=== PATIENT | female | born 1970 | race Caucasian/White ===

== ENCOUNTER 2022-04-30 16:16 | Emergency (ER) | payer OTHER, SELFPAY ==
--- NOTE | ~2022-04-30 | XR_ITS ---
EXAM: XR knee LT min 4V DATE: 04/30/2022 16:52 HISTORY: TRIPPED OVER HAY BAIL 04/29/22. MEDIAL PAIN. . COMPARISON: None available. FINDINGS: Normal mineralization. No fracture or dislocation. No lytic or blastic lesion. Moderate tr icompartmental osteoarthritis. No erosion or periosteal change. Soft tissues within normal limits. Mo derate volume knee joint effusion. IMPRESSION: No acute osseous finding in the left knee. Reviewed, dictated and finalized at location [facility].
[2022-04-30 16:24] VITALS: BP 151/87; PULSE 83; RESP 14; TEMP 36.5; O2SAT 100
--- NOTE | 2022-04-30 17:11 | ED.LOWEXIN ---
HPI - Extremity Injury (Lower) General Chief Complaint: Extremity Injury, Lower Stated Complaint: Left knee injury Time Seen by Provider: 04/30/22 17:05 Source: patient, family, RN notes reviewed and old records reviewed Mode of arrival: ambulatory Limitations: no limitations History of Present Illness HPI Narrative: 51-year-old female who [facility] with complaints of falling over Hay bale last night when she got her foot entangled with soft cooler she didn't see when she stepped over bale of hay. Patient states she rolled her foot and fell onto her left knee. She states that she has pain to the medial aspect of her knee and behind her knee rates her pain as 6/10. Patient is ambulating with limping gait, mild swelling noted to anterior left knee medial aspect.Patient has applied ice, elevated knee and taken Ibuprofen for her discomfort. MD complaint: knee injury Onset (ago): day(s) (1) Severity scale (1-10): 6 Treatments prior to arrival: cold therapy, NSAIDS and other (elevated knee) Related Data Home Medications Medication Instructions Recorded Confirmed hydrochlorothiazide 12.5 mg tablet 12.5 mg PO DAILY 04/30/22 04/30/22 norethindrone 1.5 mg-ethinyl 1 tablet PO DAILY 04/30/22 04/30/22 estradiol 30 mcg(21)/iron 75 mg(7) tablet (Celine Fe 1.5/30 (28)) omeprazole 20 mg tablet,delayed 20 mg PO DAILY 04/30/22 04/30/22 release Allergies Allergy/AdvReac Type Severity Reaction Status Date / Time Penicillins Allergy Hives Verified 04/30/22 16:32 Review of Systems Review of Systems: CONSTITUTIONAL: Denies fever, chills, or sweats. CARDIOVASCULAR: Denies chest pain, palpitations, or edema. RESPIRATORY: Denies cough or dyspnea. SKIN: Denies rash or itching. Denies laceration or abrasions MUSCULOSKELETAL: Reports pain and swelling to left knee NEUROLOGIC: Denies numbness, or weakness. All systems reviewed & are unremarkable except as noted in HPI and below PMFSH Past Medical History Medical History (Updated 05/04/22 @ 08:29 by Tabatha Rodriguez NP) Arthritis Celiac disease GERD (gastroesophageal reflux disease) Hypertension Leaky heart valve mitral Surgical History Surgical History (Updated 05/04/22 @ 08:24 by Tabatha Rodriguez NP) S/P laparoscopic surgery ovarian cyst Social History Social History (Updated 05/04/22 @ 08:21 by Tabatha Rodriguez NP) Smoking status: Current some day smoker Tobacco type: cigarettes Alcohol intake: current Alcohol use details: social Substance use: never Substance use type: does not use Living arrangements: with family Gender identity (if verbalized by the patient): Female Comments At time of signature, agree with nursing past medical, surgical, social and family history. There is no relevant family history pertinent to the presenting complaint Exam Narrative: GENERAL: Well-appearing, well-nourished, and in no acute distress. HEAD: Normocephalic, atraumatic. EYES: PERRLA, conjunctivae clear NECK: Supple. CHEST: Speaks in full sentences. No respiratory distress. HEART: Regular rate and rhythm. Normal and equal peripheral pulses. EXTREMITIES: Left knee has normal strength and sensation, normal range of motion.minimal edema or ecchymosis. 5/5 strength with normal flexion and extension. Normal sensation with sensitivity to light touch and pain. No point tenderness.? ?No open wounds, no skin tenting, no devitalized tissue or atrophy, no trophic changes, no obvious deformity, alignment normal, nearby joints and structures intact. Distal pulses palpable and equal bilaterally, skin warm, dry, pink. Capillary refill less than 3 seconds. Course Course Emergency Course: Patient is aware of diagnosis, understands and agrees to treatment plan. Anticipatory guidance given. Patient agrees to follow-up as directed and is aware of reasons to seek care at the emergency department. Portions of this record may have been created with v
--- NOTE | 2022-04-30 17:28 | ED.LOWEXIN ---
HPI - Extremity Injury (Lower) General Chief Complaint: Extremity Injury, Lower Stated Complaint: Left knee injury Time Seen by Provider: 04/30/22 17:05 Source: patient, family, RN notes reviewed and old records reviewed Mode of arrival: ambulatory Limitations: no limitations Related Data Home Medications Medication Instructions Recorded Confirmed hydrochlorothiazide 12.5 mg tablet 12.5 mg PO DAILY 04/30/22 04/30/22 norethindrone 1.5 mg-ethinyl 1 tablet PO DAILY 04/30/22 04/30/22 estradiol 30 mcg(21)/iron 75 mg(7) tablet (Celine Fe 1.5/30 (28)) omeprazole 20 mg tablet,delayed 20 mg PO DAILY 04/30/22 04/30/22 release Allergies Allergy/AdvReac Type Severity Reaction Status Date / Time Penicillins Allergy Hives Verified 04/30/22 16:32 Review of Systems Review of Systems: CONSTITUTIONAL: Denies fever, chills, or sweats. CARDIOVASCULAR: Denies chest pain, palpitations, or edema. RESPIRATORY: Denies cough or dyspnea. SKIN: Denies rash or itching. Denies laceration or abrasions MUSCULOSKELETAL: Reports NEUROLOGIC: Denies numbness, or weakness. All systems reviewed & are unremarkable except as noted in HPI and below PMFSH Social History Social History (Updated 04/30/22 @ 17:30 by Tabatha Rodriguez NP) Living arrangements: with family Gender identity (if verbalized by the patient): Female Comments At time of signature, agree with nursing past medical, surgical, social and family history. There is no relevant family history pertinent to the presenting complaint Exam Narrative: GENERAL: Well-appearing, well-nourished, and in no acute distress. HEAD: Normocephalic, atraumatic. EYES: PERRLA, conjunctivae clear NECK: Supple. CHEST: Speaks in full sentences. No respiratory distress. HEART: Regular rate and rhythm. Normal and equal peripheral pulses. EXTREMITIES: [Xxx] has normal strength and sensation, normal range of motion. No edema or ecchymosis. 5/5 strength with [xxx] flexion and extension. Normal sensation with sensitivity to light touch and pain. No point tenderness.? ?No open wounds, no skin tenting, no devitalized tissue or atrophy, no trophic changes, no obvious deformity, alignment normal, nearby joints and structures intact. Distal pulses palpable and equal bilaterally, skin warm, dry, pink. Capillary refill less than 3 seconds. Course Course Emergency Course: Patient is aware of diagnosis, understands and agrees to treatment plan. Anticipatory guidance given. Patient agrees to follow-up as directed and is aware of reasons to seek care at the emergency department. Portions of this record may have been created with voice recognition software Level of Care: Express Care Visit Vital Signs Vital signs: Vital Signs Temperature 36.5 C 04/30/22 16:24 Pulse Rate 83 04/30/22 16:24 Respiratory Rate 14 04/30/22 16:24 Blood Pressure 151/87 H 04/30/22 16:24 Pulse Oximetry 100 04/30/22 16:24 Oxygen Delivery Room Air 04/30/22 16:24 Temperature 36.5 C 04/30/22 16:24 Pulse Rate 83 04/30/22 16:24 Respiratory Rate 14 04/30/22 16:24 Blood Pressure 151/87 H 04/30/22 16:24 Pulse Oximetry 100 04/30/22 16:24 Oxygen Delivery Room Air 04/30/22 16:24 MDM - Extremity Injury (Lower) MDM Narrative Medical decision making narrative: Patient's injury and/or pain is consistent with musculoskeletal etiology. No signs of neurological or vascular compromise on exam compartments and tissues are soft without signs of compartment syndrome. Patient is felt appropriate for further evaluation on outpatient basis Discharge Plan Discharge Clinical Impression: Muscle strain of left knee Patient Disposition: Home, Self-Care Condition: Stable Instructions: Antibiotic Form, Knee Pain (ED) Additional Instructions: Elastic wrap or orthopedic splint as directed for comfort for the next 5-7 days Tylenol for lesser pain Ibuprofen regularly for the next 2-3 days
== END 2022-04-30 17:28 | disposition home or self-care (01) ==
PROVIDERS: Emergency Provider Registered Nurse
DX: S86.912A Strain of unspecified muscle(s) and tendon(s) at lower leg level, left leg, initial encounter (principal); W01.0XXA Fall on same level from slipping, tripping and stumbling without subsequent striking against object, initial encounter; I10 Essential (primary) hypertension; K21.9 Gastro-esophageal reflux disease without esophagitis; K90.0 Celiac disease; M19.90 Unspecified osteoarthritis, unspecified site; I05.9 Rheumatic mitral valve disease, unspecified
CPT/HCPCS: 73564; 99213; G0463

== ENCOUNTER 2024-01-17 17:08 | Emergency (ER) | payer OTHER, SELFPAY ==
[2024-01-17 17:19] VITALS: BP 144/89; PULSE 97; RESP 18; TEMP 36.7; O2SAT 100
--- NOTE | 2024-01-17 18:02 | ED.ANIMALBIT ---
HPI - Animal Bite General Chief Complaint: Wound/Laceration Stated Complaint: Dog Bite/Finger Time Seen by Provider: 01/17/24 17:47 Source: patient and RN notes reviewed Mode of arrival: ambulatory Limitations: no limitations History of Present Illness HPI narrative: Patient presents today complaining of a dog bite to her right 2nd finger. She was bit in the PIP yesterday by a dog visiting her home. She is unsure of the dog's vaccine status, but knows it is an inside dog. She is not up-to-date on her tetanus vaccine. She has been applying ice and elevating the finger prior to arrival. States it has become more painful, red, and swollen since yesterday. Related Data Home Medications Medication Instructions Recorded Confirmed hydrochlorothiazide 12.5 mg tablet 12.5 mg PO DAILY 04/30/22 04/30/22 omeprazole 20 mg tablet,delayed 20 mg PO DAILY 04/30/22 04/30/22 release aspirin 81 mg capsule mg 01/17/24 black cohosh 01/17/24 01/17/24 diclofenac sodium 75 mg mg PO 01/17/24 tablet,delayed release lisinopril 5 mg tablet mg 01/17/24 zolpidem 5 mg tablet mg 01/17/24 Allergies Allergy/AdvReac Type Severity Reaction Status Date / Time Penicillins Allergy Hives Verified 04/30/22 16:32 Review of Systems Review of Systems: CONSTITUTIONAL: Denies body aches, fever, chills, or sweats. EYES: Denies visual changes, redness, or discharge. ENT: Denies rhinorrhea, congestion, sore throat, or otalgia. CARDIOVASCULAR: Denies chest pain, palpitations, or edema. RESPIRATORY: Denies cough or dyspnea. GASTROINTESTINAL: Denies abdominal pain, nausea, vomiting, or diarrhea. GENITOURINARY: Denies dysuria or hematuria. SKIN: Denies rash, itching. Right 2nd finger dog bite MUSCULOSKELETAL: Denies back pain, joint pain, or myalgia. NEUROLOGIC: Denies headache, numbness, tingling, or weakness. PSYCH: Denies depression or anxiety. [facility] Past Medical History Medical History Arthritis Celiac disease GERD (gastroesophageal reflux disease) Hypertension Leaky heart valve mitral Surgical History Surgical History S/P laparoscopic surgery ovarian cyst Social History Social History Smoking status: Current some day smoker Tobacco type: cigarettes Alcohol intake: current Alcohol use details: social Substance use: never Substance use type: does not use Living arrangements: with family Gender identity (if verbalized by the patient): Female Comments At time of signature, I have reviewed and agree with nursing past medical, surgical, social and family history unless otherwise noted. Please see nursing chart for further information. There is no relevant family history pertinent to the presenting complaint Exam Narrative: GENERAL: Well-appearing, well-nourished, and in no acute distress. HEAD: Normocephalic, atraumatic. EYES: EOMI. No redness or drainage. Conjunctivae normal. ENT: Mucous membranes pink and moist. NECK: Normal AROM. CHEST: No respiratory distress. EXTREMITIES: Right 2nd finger: Approximately 3 mm open laceration to the lateral side of the right 2nd PIP. The joint and proximal phalanx is erythematous and mild to moderately edematous. Patient also has 3 tiny scabbed puncture wounds to the medial side of the PIP. Entire joint is Tender to palpation. Distal sensation intact. Capillary refill normal. Decreased range of motion due to pain and swelling SKIN: Warm, dry, no rash. Capillary refill normal. Normal skin turgor. NEURO: No focal deficits. Alert and oriented x3. Gait steady. PSYCH: Normal affect. No signs of depression or anxiety. Course Course Level of Care: Express Care Visit Vital Signs Vital signs: Vital Signs Temperature 98.1 F 01/17/24 17:19 Pulse Rate 97 01/17/24 17:19 R
[2024-01-17] MEDS: TETANUS,DIPHTHERIA,AC PERTUSSIS ADULT (0.5 ML) BOOSTRIX IM (18:04)
== END 2024-01-17 18:16 | disposition home or self-care (01) ==
PROVIDERS: Emergency Provider Nurse Practitioner; PCP Family Medicine
DX: L03.011 Cellulitis of right finger (principal); S61.210A Laceration without foreign body of right index finger without damage to nail, initial encounter; W54.0XXA Bitten by dog, initial encounter; Z23 Encounter for immunization; M19.90 Unspecified osteoarthritis, unspecified site; K21.9 Gastro-esophageal reflux disease without esophagitis; K90.0 Celiac disease; I05.9 Rheumatic mitral valve disease, unspecified; F17.210 Nicotine dependence, cigarettes, uncomplicated; Z79.82 Long term (current) use of aspirin
CPT/HCPCS: 90471; 90715; 99213; G0463